=== PATIENT | male | born 1985 | race Two or more races ===

== ENCOUNTER 2017-07-28 18:19 | Emergency (ER) | payer MEDICAID ==
[~2017-07-28] VITALS: Ht 175.3 cm; Wt 73.2 kg
[~2017-07-28 18:19] MED LIST: FLO0.4C PO; HYDR-569 PO; NAPR-56 PO; ONDA4TAB6 PO; ONDA8TAB9 PO; OXYC-150 PO
[2017-07-28 18:33] VITALS: BP 131/78
== END 2017-07-28 21:36 | disposition left against medical advice (07) ==
LOC: ER 18:21
DX: R10.9 Unspecified abdominal pain (principal); Z53.21 Procedure and treatment not carried out due to patient leaving prior to being seen by health care provider

== ENCOUNTER 2017-12-09 11:45 | Emergency (ER) | payer MEDICAID ==
[~2017-12-09] VITALS: Ht 175.3 cm; Wt 73.8 kg
[~2017-12-09 11:45] MED LIST changes: +HYDR-4383 PO; -HYDR-569 PO
[2017-12-09 11:52] VITALS: BP 132/97
[2017-12-09] MEDS ORDERED: AMOX500C2 PO (12:10)
[2017-12-09] MEDS ORDERED: ketorolac trometh inj. 60 MG/2 ML VIAL IM ONE (12:10)
[2017-12-09] MEDS ORDERED: PANT20TA3 PO (12:10)
[2017-12-09] MEDS ORDERED: HYDR-3965 PO (12:10)
== END 2017-12-09 12:23 | disposition home or self-care (01) ==
LOC: ER 11:45
DX: K08.89 Other specified disorders of teeth and supporting structures (principal); G43.909 Migraine, unspecified, not intractable, without status migrainosus; K21.9 Gastro-esophageal reflux disease without esophagitis; G89.29 Other chronic pain; F12.90 Cannabis use, unspecified, uncomplicated; F15.90 Other stimulant use, unspecified, uncomplicated; Z87.442 Personal history of urinary calculi; Z79.899 Other long term (current) drug therapy
CPT/HCPCS: 96372; 99283; J1885

== ENCOUNTER 2018-11-05 17:11 | Emergency (ER) | payer MEDICAID ==
[~2018-11-05] VITALS: Ht 175.3 cm; Wt 75.0 kg
[~2018-11-05 17:11] MED LIST changes: +KETO10TA2 PO; +PANT20TA3 PO
[2018-11-05] MEDS ORDERED: morphine 2 MG/ML inj. syringe IV ONE (19:45)
[2018-11-05] MEDS ORDERED: NAPR-56 PO (20:51)
[2018-11-05] MEDS ORDERED: HYDR-4383 PO (20:51)
[2018-11-05] MEDS ORDERED: naproxen 500mg tablet PO ONE (21:25)
[2018-11-05 21:35] VITALS: BP 140/90
== END 2018-11-05 21:44 | disposition home or self-care (01) ==
LOC: ER 17:11
DX: S43.101A Unspecified dislocation of right acromioclavicular joint, initial encounter (principal); G43.909 Migraine, unspecified, not intractable, without status migrainosus; K21.9 Gastro-esophageal reflux disease without esophagitis; G89.29 Other chronic pain; F12.90 Cannabis use, unspecified, uncomplicated; F15.90 Other stimulant use, unspecified, uncomplicated; Z87.442 Personal history of urinary calculi; Z98.890 Other specified postprocedural states; Z79.899 Other long term (current) drug therapy; V19.9XXA Pedal cyclist (driver) (passenger) injured in unspecified traffic accident, initial encounter; Y93.89 Activity, other specified; Y92.89 Other specified places as the place of occurrence of the external cause; Y99.8 Other external cause status
CPT/HCPCS: 73030; 73200; 96374; 99284; J2270

== ENCOUNTER 2018-12-22 00:30 | Emergency (ER) | payer MEDICAID ==
[~2018-12-22] VITALS: Ht 175.3 cm; Wt 75.0 kg
[2018-12-22 00:31] VITALS: BP 131/85
== END 2018-12-22 01:38 | disposition home or self-care (01) ==
LOC: ER 00:30
DX: S43.101A Unspecified dislocation of right acromioclavicular joint, initial encounter (principal); G43.909 Migraine, unspecified, not intractable, without status migrainosus; K21.9 Gastro-esophageal reflux disease without esophagitis; G89.29 Other chronic pain; F12.90 Cannabis use, unspecified, uncomplicated; F15.90 Other stimulant use, unspecified, uncomplicated; Z87.442 Personal history of urinary calculi; Z98.890 Other specified postprocedural states; V19.9XXA Pedal cyclist (driver) (passenger) injured in unspecified traffic accident, initial encounter; Y93.89 Activity, other specified; Y92.89 Other specified places as the place of occurrence of the external cause; Y99.8 Other external cause status
CPT/HCPCS: 73030; 93005; 99283

== ENCOUNTER 2019-01-04 21:15 | Emergency (ER) | payer MEDICAID ==
[~2019-01-04] VITALS: Ht 175.3 cm; Wt 75.0 kg
--- NOTE | 2019-01-04 22:37 | NUR ---
Patient is with Dr. Lott, he is resting comfortably on the gurney.
[2019-01-04] MEDS ORDERED: cyclobenzaprine 10mg tablet PO ONE (22:45)
[2019-01-04] MEDS ORDERED: HYDROcodone/acetaminophen 10/325mg tab PO ONE (22:45)
[2019-01-04] MEDS ORDERED: ACET-3068 PO (22:48)
[2019-01-04] MEDS ORDERED: CYCL-1 PO (22:48)
[2019-01-04 23:19] VITALS: BP 138/94
--- NOTE | 2019-01-05 09:00 | NUR ---
[facility] CALLED, [facility] IS NOW [facility] AND CONTACTED THE [facility] ON [address] WHERE PT STATES HE WANTED HIS RX CALLED INTO, VERIFIED THAT THE RX WAS FAXED IN, HOWEVER IT WAS FAXED TO THE [facility] ON [address] BY [facility]. PT WAS CALLED, HE WAS NOT AVAILABLE AND A MSG WAS LEFT WITH A WOMAN WHO ANSWERED THE PHONE, ASKING THAT THE PT CALL BACK TO THE ER REGARDING HIS VISIT ON 01/04 AND HIS RX.
== END 2019-01-04 23:24 | disposition home or self-care (01) ==
LOC: ER 21:16
DX: M25.512 Pain in left shoulder (principal); G43.909 Migraine, unspecified, not intractable, without status migrainosus; G89.29 Other chronic pain; F17.200 Nicotine dependence, unspecified, uncomplicated; F12.90 Cannabis use, unspecified, uncomplicated; F15.90 Other stimulant use, unspecified, uncomplicated; K21.9 Gastro-esophageal reflux disease without esophagitis; Z87.440 Personal history of urinary (tract) infections
CPT/HCPCS: 73030; 99284

== ENCOUNTER 2019-04-10 22:17 | Emergency (ER) | payer MEDICAID ==
[~2019-04-10] VITALS: Ht 175.3 cm; Wt 72.7 kg
[~2019-04-10 22:17] MED LIST changes: +CYCL-1 PO
[2019-04-10 22:21] VITALS: BP 152/102
[2019-04-10] MEDS ORDERED: TETanus/Pertussis (Acell)/Diphther VAC/PF (Tdap-Adult) 0.5ml syringe IMVAC ONE (22:45)
[2019-04-10] MEDS ORDERED: acetaminophen 325mg tablet PO ONE (22:45)
[2019-04-10] MEDS ORDERED: sulfamethoxazole/trimethoprim DS (800/160mg) tablet PO ONE (22:45)
[2019-04-10] MEDS ORDERED: SULF1TAB49 PO (22:46)
== END 2019-04-10 23:04 | disposition home or self-care (01) ==
LOC: ER 22:18
DX: S91.332A Puncture wound without foreign body, left foot, initial encounter (principal); G43.909 Migraine, unspecified, not intractable, without status migrainosus; K21.9 Gastro-esophageal reflux disease without esophagitis; G89.29 Other chronic pain; F12.90 Cannabis use, unspecified, uncomplicated; F15.90 Other stimulant use, unspecified, uncomplicated; Z98.890 Other specified postprocedural states; Z87.442 Personal history of urinary calculi; Z79.899 Other long term (current) drug therapy; W22.8XXA Striking against or struck by other objects, initial encounter; Y93.01 Activity, walking, marching and hiking; Y92.481 Parking lot as the place of occurrence of the external cause; Y99.9 Unspecified external cause status
CPT/HCPCS: 73630; 90471; 90715; 99283

== ENCOUNTER 2019-08-17 01:28 | Emergency (ER) | payer MEDICAID ==
[~2019-08-17] VITALS: Ht 165.1 cm; Wt 72.7 kg
[2019-08-17 01:35] VITALS: BP 113/74
== END 2019-08-17 02:40 | disposition left against medical advice (07) ==
LOC: ER 01:29
DX: A53.9 Syphilis, unspecified (principal); Z53.21 Procedure and treatment not carried out due to patient leaving prior to being seen by health care provider

== ENCOUNTER 2020-07-13 06:12 | Emergency (ER) | payer MEDICAID ==
[~2020-07-13] VITALS: Ht 175.3 cm; Wt 72.7 kg
[~2020-07-13 06:12] MED LIST changes: +PANT20TA18 PO; -PANT20TA3 PO
[2020-07-13 06:29] VITALS: BP 138/72
[2020-07-13] MEDS ORDERED: DOXY150T5 PO (07:55)
[2020-07-13] MEDS ORDERED: CEFTRIAXONE 500 MG VIAL IM ONE (07:55)
[2020-07-13] MEDS ORDERED: CefTRIAXone 1000mg IM Kit (w/lidocaine diluent) IM ONE (08:25)
== END 2020-07-13 09:20 | disposition home or self-care (01) ==
LOC: ER 06:13
DX: A64 Unspecified sexually transmitted disease (principal); R53.83 Other fatigue; R11.0 Nausea; G43.909 Migraine, unspecified, not intractable, without status migrainosus; K21.9 Gastro-esophageal reflux disease without esophagitis; G89.29 Other chronic pain; F17.210 Nicotine dependence, cigarettes, uncomplicated; F12.90 Cannabis use, unspecified, uncomplicated; F15.90 Other stimulant use, unspecified, uncomplicated; Z87.442 Personal history of urinary calculi; Z98.890 Other specified postprocedural states; Z79.2 Long term (current) use of antibiotics; Z79.899 Other long term (current) drug therapy
CPT/HCPCS: 36415; 86592; 87491; 87591; 96372; 99283; J0696

== ENCOUNTER 2020-12-12 06:11 | Emergency (ER) | payer MEDICAID ==
--- NOTE | 2020-12-12 07:17 | NUR ---
Patient was seen by Dr. Jeffries, No RN triaged patient. EMT went out to ambulance bay, Patient was not outside. Patient eloped.
== END 2020-12-12 07:43 | disposition left against medical advice (07) ==
LOC: ER 06:12
DX: B34.9 Viral infection, unspecified (principal); R07.89 Other chest pain; R11.2 Nausea with vomiting, unspecified; G43.909 Migraine, unspecified, not intractable, without status migrainosus; K21.9 Gastro-esophageal reflux disease without esophagitis; G89.29 Other chronic pain; F12.90 Cannabis use, unspecified, uncomplicated; F15.90 Other stimulant use, unspecified, uncomplicated; Z87.442 Personal history of urinary calculi; Z98.890 Other specified postprocedural states; Z79.899 Other long term (current) drug therapy
CPT/HCPCS: 99281

== ENCOUNTER 2020-12-22 23:15 | Emergency (ER) | payer MEDICAID ==
[~2020-12-22] VITALS: Ht 177.8 cm; Wt 72.7 kg
[2020-12-23 02:50] VITALS: BP 133/83
[2020-12-23] MEDS ORDERED: ibuprofen 200mg tablet PO ONE (02:55)
== END 2020-12-23 03:50 | disposition left against medical advice (07) ==
LOC: ER 23:16
DX: U07.1 COVID-19 (principal); F12.10 Cannabis abuse, uncomplicated; F15.10 Other stimulant abuse, uncomplicated; F17.210 Nicotine dependence, cigarettes, uncomplicated; G43.909 Migraine, unspecified, not intractable, without status migrainosus; G89.29 Other chronic pain; M54.9 Dorsalgia, unspecified; K21.9 Gastro-esophageal reflux disease without esophagitis
CPT/HCPCS: 36415; 71045; 93005; 99285; U0003; U0005